=== PATIENT | male | born 1955 | race Caucasian/White ===

== ENCOUNTER 2017-08-20 13:51 | Emergency (ER) | payer OTHER ==
[~2017-08-20] VITALS: Ht 195.6 cm; Wt 104.3 kg
[2017-08-20 15:14] VITALS: BP 154/98
== END 2017-08-20 15:17 | disposition home or self-care (01) ==
LOC: ER 13:51
DX: S61.212A Laceration without foreign body of right middle finger without damage to nail, initial encounter (principal); F17.210 Nicotine dependence, cigarettes, uncomplicated; W27.8XXA Contact with other nonpowered hand tool, initial encounter; Y93.53 Activity, golf; Y92.89 Other specified places as the place of occurrence of the external cause; Y99.8 Other external cause status